=== PATIENT | male | born 1980 | race Caucasian/White ===

== ENCOUNTER 2019-09-30 00:37 | Outpatient (CLI) | payer OTHER, SELFPAY ==
[2019-09-30 17:56] LABS: SARS-CoV-2 RNA PCR Negative
== END 2019-09-30 00:38 | disposition home or self-care (01) ==
LOC: ANHCOVIDDT 00:37
PROVIDERS: PCP Internal Medicine; Visit Provider Internal Medicine Gastroenterology
DX: Z01.812 Encounter for preprocedural laboratory examination (principal); Z11.59 Encounter for screening for other viral diseases
CPT/HCPCS: 87635; C9803; U0003

== ENCOUNTER 2019-10-02 02:06 | Day surgery (SDC) | payer OTHER, SELFPAY ==
[2019-09-22 14:56] VITALS: BMI 26.6
[2019-10-02 07:32] VITALS: BP 120/75; PULSE 90; RESP 18; TEMP 36.8; O2SAT 99; BMI 25.4
[2019-10-02] MEDS: LACTATED RINGERS 1,000 ML 150 ML IV CONT (07:42)
--- NOTE | 2019-10-02 08:05 | P.PNAN_ITS ---
Anes - Initial Pre Proc Eval Procedure: Operation Date: 10/02/19 08:30 Proposed Procedures p Esophagogastroduodenoscopy - Enmanuel Young MD Date/Time: 10/02/19 08:05 Surgeon: Enmanuel Young MD Pre Op Diagnosis: Dysphagia Patient Data Age: 38 Gender: M Height: 5 ft 11 in Weight: 82.9 kg Last Vital Signs Temp 98.2 F 10/02/19 07:32 Pulse 90 10/02/19 07:32 Resp 18 10/02/19 07:32 BP 120/75 10/02/19 07:32 Pulse Ox 99 10/02/19 07:32 Allergies Allergy/AdvReac Type Severity Reaction Status Date / Time No Known Allergies Allergy Verified 10/02/19 07:30 Home Medications Medication Instructions Recorded Confirmed Type escitalopram oxalate 20 mg PO DAILY 09/22/19 10/02/19 History Patient hx anesthesia problems: none Family hx anesthesia problems: none [facility] Past Medical History Medical History (Updated 10/02/19 @ 07:58 by Marquise Jackman MD) Anxiety Social History Social History (Updated 10/02/19 @ 08:04 by Marquise Jackman MD) Smoking packs per day: 1 Smoking cigarettes per day: 20.0 Years smoked: 15 Smoking pack-years: 15.00 Smoking status: Current every day smoker Anes - Eval Final PreProcedure Day of Procedure 10/02/19 08:05 Patient weight: normal Heart: regular rate and rhythm Lungs: clear to auscultation Airway: Mallampati scale class II Neurological: alert and oriented Last oral intake: >/= 8 hours ASA classification: II Emergent: no Anesthetic plan: proceed Anesthesia type and monitoring: general GIVS and standard monitoring Informed Consent: The patient's anesthetic plan and its attendant risks and benefits were discussed with the patient/family/POA. Questions were solicited and answers provided to the satisfaction of the patient/family/POA.
--- NOTE | 2019-10-02 08:12 | PM.HPGS ---
History of Present Illness History of Present Illness Consent: Risks, benefits, and alternatives have been discussed and questions answered. Patient agrees to proceed with procedure. Chief complaint: Dysphagia Narrative: Noah Donaldson is a 38 year old W male with a history of dysphagia I saw this patient 2016. He was found to have gastroesophageal reflux disease with Schatzki's ring. This was dilated he was placed on Prilosec. Patient's symptoms improved. However he started having some GI I difficulty felt was related to the Prilosec this was stopped most symptoms improved but he was never placed on the another medication for his acid reflux. He has had increasing difficulty again with dysphagia particularly for solid foods. [facility] Past Medical History Medical History (Updated 10/02/19 @ 08:13 by Enmanuel Young MD) Anxiety GERD (gastroesophageal reflux disease) Surgical History Surgical History (Updated 10/02/19 @ 08:14 by Enmanuel Young MD) H/O sinus surgery H/O vasectomy H/O wisdom tooth extraction Social History Social History (Updated 10/02/19 @ 08:04 by Marquise Jackman MD) Smoking packs per day: 1 Smoking cigarettes per day: 20.0 Years smoked: 15 Smoking pack-years: 15.00 Smoking status: Current every day smoker Meds Home Medications and Allergies Home Medications Medication Instructions Recorded Confirmed Type escitalopram oxalate 20 mg PO DAILY 09/22/19 10/02/19 History Allergies Allergy/AdvReac Type Severity Reaction Status Date / Time No Known Allergies Allergy Verified 10/02/19 07:30 Vital Signs Vital Signs - 24 hr 10/02/19 07:32 Temperature 36.8 C Pulse Rate 90 Respiratory Rate 18 Blood Pressure 120/75 Pulse Oximetry 99 Exam Const: Orientation/consciousness: patient oriented x3 Resp: Auscultation: clear to auscultation bilaterally Cardio: Rate: regular rate Rhythm: regular rhythm Heart sounds: no murmurs GI: GI Palp: Yes Soft to palpation, No Tenderness to palpation present (GI), Yes No hepatosplenomegaly present and No Palpable mass present Auscultation: normal bowel sounds Neuro: General: patient oriented x3 and no focal motor deficits Extrem: General: no pedal edema Assessment and Plan Additional Plan EGD with possible esophageal dilatation for evaluation of dysphagia
[2019-10-02 09:00] VITALS: BP 100/64; PULSE 72; RESP 21; O2SAT 93
[2019-10-02 09:10] VITALS: BP 99/68; PULSE 73; RESP 16; O2SAT 98
[2019-10-02 09:20] VITALS: BP 105/71; PULSE 71; RESP 19; O2SAT 100
[2019-10-02 09:30] VITALS: BP 109/84; PULSE 78; RESP 21; O2SAT 100
== END 2019-10-02 09:37 | disposition home or self-care (01) ==
PROVIDERS: PCP Internal Medicine; Visit Provider Internal Medicine Gastroenterology
PROC: 0DJ08ZZ Inspection of Upper Intestinal Tract, Via Natural or Artificial Opening Endoscopic (ICD-10-PCS; CPT 43235; principal; 2019-10-02 08:30)
DX: K22.2 Esophageal obstruction (principal); K21.0 Gastro-esophageal reflux disease with esophagitis; K29.50 Unspecified chronic gastritis without bleeding; F41.9 Anxiety disorder, unspecified; F17.210 Nicotine dependence, cigarettes, uncomplicated
CPT/HCPCS: 43239; 43249; 87081; 87635; 88305; C1726; J2704; J7120; U0003

== ENCOUNTER 2019-10-24 14:33 | Outpatient (CLI) | payer OTHER, SELFPAY ==
--- NOTE | ~2019-10-24 | XR_ITS ---
EXAMINATION: XR barium swallow DATE: 10/24/2019 15:15 INDICATION: Dysphagia TECHNIQUE: The patient drank thick barium, gas-producing crystals, and thin barium. The patient also ingested a barium pill Fluoroscopy of the hypopharynx and esophagus was performed. Fluoroscopy exposu re time was 2.0 minutes. The DAP for this procedure was 13.45 Gycm2. COMPARISON: None. FINDINGS: Esophageal motility is normal. There is no hiatal hernia. There was no gastroesophageal ref lux with provocative maneuvers. There appears to be mild stricturing of the esophagus at the gastroes ophageal junction. The ingested barium pill impacted at the distal esophagus at the gastroesophageal junction. The pill eventually passed after several sips of water and finally after a moderate-sized b olus of thin barium. IMPRESSION: 1. Mild stricturing of the distal esophagus at the gastroesophageal junction. No mass identified. Reviewed, dictated and finalized at location A. IMPRESSION: 1. Mild stricturing of the distal esophagus at the gastroesophageal junction. N o mass identified.
== END 2019-10-24 14:34 | disposition home or self-care (01) ==
PROVIDERS: PCP Internal Medicine; Visit Provider Internal Medicine Gastroenterology
DX: R13.10 Dysphagia, unspecified (principal)
CPT/HCPCS: 74220

== ENCOUNTER 2022-03-14 09:01 | Outpatient (CLI) | payer OTHER, SELFPAY ==
--- NOTE | 2022-03-20 18:45 | WPDHOMESLEEP ---
Sleep Study - Home Unattended Date of Study: 03/14/22 Ordering Provider: Bryn Vargas, Interpreting Provider: Malka Darling, DO Home Sleep Study Type: Watch PAT Height: 1.8 m Weight: 92.079 kg Body Mass Index: 28.3 Neck Circumference (inches): 16.25 [place]: 13 Reason for Sleep Study Snoring, daytime hypersomnia Sleep History The patient is a 41-year-old male with anxiety, depression, hyperlipidemia and GERD that had a sleep study ordered by his psychiatrist for evaluation of sleep apnea. He frequently awakens from sleep short of breath. He occasionally awakens at night with heartburn, belching or cough. He frequently snores and is constantly loud enough that others complain. He frequently has trouble sleeping when he has a cold. He occasionally wakes up gasping for air throughout the night. He frequently has breathing problems at night observed by himself or others. He frequently sweats excessively at night. He frequently has heart palpitations or irregular heartbeats during the night. He frequently falls asleep during the day and frequently falls asleep while driving. He denies sleep paralysis, cataplexy and hypnagogic / hypnopompic hallucinations. He rarely has trouble at school or work due to sleepiness. He denies having nightmares. He denies feeling afraid of going to sleep. He occasionally remembers his dreams. He occasionally has thoughts racing through his mind. He occasionally feels sad, depressed or anxious. He rarely has muscular tension. He constantly notices parts of his body jerk. He constantly kicks during the night. He occasionally has crawling and aching feelings in his legs and occasionally has leg pain during the night. He constantly grinds his teeth during sleep and frequently awakens with morning jaw pain. He is occasionally bothered by pain during the day and occasionally awakened by pain during the night. He frequently wakes up feeling stiff in the morning. He occasionally wakes up with sore or achy muscles. He occasionally wakes up with pain in the neck, spine and other joints. He goes to bed between 9-10 p.m. on both weekdays and weekends. It takes him 5-10 minutes to fall asleep. He wakes up twice throughout the night to urinate. He is able to fall back asleep within 10 minutes. He wakes up between 5-6 a.m. on weekdays and between 8-9 a.m. on the weekends. He typically gets 6-8 hours of sleep per night. He will stay in bed for 5-10 minutes after waking up in the morning. He currently lives with his girlfriend and 3 children. He does not consume any caffeinated beverages within 2 hours of bedtime. He does not engage in physical exercise before bedtime. He will watch television before falling asleep. He will take naps in the afternoon or the evening and they are refreshing. He drinks 80 oz of caffeinated beverage per day. He smokes 1 pack of cigarettes per day. He denies alcohol and recreational drug use. [facility] Past Medical History Medical History Anxiety GERD (gastroesophageal reflux disease) Surgical History Surgical History H/O sinus surgery H/O vasectomy H/O wisdom tooth extraction Social History Social History Smoking packs per day: 1 Smoking cigarettes per day: 20.0 Years smoked: 15 Smoking pack-years: 15.00 Smoking status: Current every day smoker Medications Home Medications Medication Instructions Recorded Confirmed Type escitalopram oxalate 20 mg tablet 20 mg PO DAILY 09/22/19 10/02/19 History Sleep Procedure The sleep study was completed using [employer] a technically adequate device with seven channels: peripheral arterial tone, actigraphy, body position, snore, respiratory movement, pulse oximetry, sleep staging, and heart rate. Prior to using the device, the
[2022-03-20 18:56] VITALS: BMI 28.3
--- NOTE | 2023-03-08 11:11 | SLEEP ---
pt missed appt with sleep med
== END 2022-03-15 14:55 | disposition home or self-care (01) ==
LOC: ANHCSM 09:02
PROVIDERS: PCP Internal Medicine; Visit Provider Internal Medicine
DX: G47.33 Obstructive sleep apnea (adult) (pediatric) (principal)
CPT/HCPCS: 95800

== ENCOUNTER 2022-12-24 12:32 | Emergency (ER) | payer OTHER, SELFPAY ==
[2022-12-24] VITALS (8 sets, daily range): BP systolic 111–138; BP diastolic 66–86; PULSE 70–92; RESP 12–20; TEMP 37.1; O2SAT 97–100
--- NOTE | ~2022-12-24 | CT_ITS ---
EXAMINATION: CTA chest abdomen pelvis DATE: 12/24/2022 14:20 INDICATION: chest pain, SOB, right arm and leg tingling . TECHNIQUE: Computed tomography (CT) of the chest, abdomen, and pelvis was performed with 100 mL Omnip aque-350 intravenous contrast in the arterial phase. Automated exposure control and iterative reconst ruction technique were employed. The dose-length product was 1323.47 mGy-cm. COMPARISON: None FINDINGS: CHEST: Thoracic aorta: No significant dilation or calcification. Lung parenchyma and airways: Lungs and airways are clear. Thoracic inlet, axillae and chest wall: No thyroid or soft tissue mass. No axillary lymphadenopathy. Mediastinum: No mass or lymphadenopathy. Heart and pericardium: Normal heart size. No pericardial effusion. Coronary artery calcifications: Absent. Pleura: No effusion or mass. Thoracic bones: No acute osseous finding in the chest. ABDOMEN/PELVIS: Liver: Multiple simple cysts Biliary/Gallbladder: Gallbladder is normal. No bile duct dilation. Pancreas: No mass or duct dilation. Spleen: Normal. Adrenals:No mass. Kidneys: No suspicious mass, obstructing stone, or hydronephrosis. Simple 4.6 cm right midpole cyst. GI tract: No small or large bowel dilation. Normal appendix. Mesentery/Peritoneum: No ascites, mass, or free air. Retroperitoneum: No mass Pelvis: Enlarged prostate. Mild wall thickening in a partially distended urinary bladder. Soft Tissues: Soft tissues and body wall unremarkable. Abdominopelvic bones: No acute osseous finding in the abdomen/pelvis. IMPRESSION: Mild wall thickening in a partially distended urinary bladder, may reflect incomplete distention, out let obstruction from prostatomegaly, or cystitis. Otherwise, no acute process detected in the chest, abdomen, or pelvis. Reviewed, dictated and finalized at location K. IMPRESSION: Mild wall thickening in a partially distended urinary bladder, may reflect inco mplete distention, outlet obstruction from prostatomegaly, or cystitis. Otherwise, no acute process detected in the chest, abdomen, or pelvis.
--- NOTE | ~2022-12-24 | XR_ITS ---
XR chest 2V 12/24/2022 12:51 Indication: Chest pain Procedure: 2 view chest Comparison: No prior studies for comparison. Findings: Left lower lobe airspace disease. Heart size normal. No pleural effusion, edema or pneumoth orax. No acute osseous abnormality. Impression: 1: Left lower lobe airspace disease which may represent pneumonia and/or atelectasis. Reviewed, dictated and finalized at location A. Impression: 1: Left lower lobe airspace disease which may represent pneumonia and/or atelec tasis.
--- NOTE | ~2022-12-24 | CT_ITS ---
EXAMINATION: CT brain wo con DATE: 12/24/2022 14:21 INDICATION: arm and leg tingling . TECHNIQUE: Computed tomography (CT) of the head was performed without intravenous contrast. The mA wa s adjusted according to patient size. Iterative reconstruction technique was employed. The dose-lengt h product was 605.33 mGy-cm. COMPARISON: None. FINDINGS: No acute intracranial hemorrhage or extra-axial fluid collection. No hydrocephalus, mass, or herniation. No acute ischemic infarct. Unremarkable dural venous sinus attenuation. No acute osseous abnormality. Frontal and ethmoid mucosal thickening, trace left mastoid fluid, the remaining] aerated spaces are c lear. IMPRESSION: No acute intracranial process. Reviewed, dictated and finalized at location K.
--- NOTE | 2022-12-24 12:36 | ECG_ITS ---
Measurements Intervals [place] Rate: 92 P: 66 TX: 174 QRS: 50 QRSD: 86 T: 63 QT: 344 QTc: 427 Interpretive Statements SINUS RHYTHM NORMAL ELECTROCARDIOGRAM NO PREVIOUS ECG AVAILABLE FOR COMPARISON Electronically Signed On 12-25-2022 7:01:29 CDT by Maynor Chan M.D.
--- NOTE | 2022-12-24 12:53 | ED.CHESTPAIN ---
HPI - Chest Pain General Chief Complaint: Chest Pain Stated Complaint: chest pain Time Seen by Provider: 12/24/22 12:51 History of Present Illness HPI narrative: Patient is a 42-year-old male with history of anxiety, GERD, obstructive sleep apnea, active cigarette smoker here with chest pain. Patient states that over the last 1 week he has been having episodic chest pain. He states feels like a pressure sensation in the center of his chest and usually comes for a few minutes and then resolved. He denies any radiation of the pain wash in full. He does note that he has had some associated right arm and leg tingling, pins and needle sensation, no sensory or motor deficit. he additionally describes 2 episodes of his vision going black while he was driving which occurred 1 week ago and yesterday. He states that his vision rapidly returned and he had no other symptoms like body shaking or urinary incontinence. No prior history of PE or DVT. No prior history of stroke. No personal cardiac history, has never had a cardiac workup. Of note he has not been using a CPAP at night because he was never provided with it. Shortly after his sleep study at the beginning of this year he switched jobs and the health insurance and it seemed to get lost in the mix. No cough, congestion, fever, chills. Related Data Home Medications Medication Instructions Recorded Confirmed escitalopram oxalate 20 mg tablet 20 mg PO DAILY 09/22/19 10/02/19 Allergies Allergy/AdvReac Type Severity Reaction Status Date / Time No Known Allergies Allergy Verified 10/02/19 07:30 Review of Systems Review of Systems: All systems reviewed & are unremarkable except as noted in HPI and below PMFSH Past Medical History Medical History Anxiety GERD (gastroesophageal reflux disease) Surgical History Surgical History H/O sinus surgery H/O vasectomy H/O wisdom tooth extraction Social History Social History Smoking packs per day: 1 Smoking cigarettes per day: 20.0 Years smoked: 15 Smoking pack-years: 15.00 Smoking status: Current every day smoker Exam Narrative: GENERAL: Well-appearing, well-nourished, and in no acute distress. HEAD: Normocephalic, atraumatic. EYES: PERRLA and EOMI. ENT: Nares clear. Mucous membranes moist. NECK: Supple. CHEST: Clear to auscultation. No respiratory distress. HEART: Regular rate and rhythm. Normal, equal radial and posterior tibial pulses. ABDOMEN: Soft, nontender, nondistended. EXTREMITIES: Normal range of motion. No edema. SKIN: Warm, dry, no rash. NEURO: No focal deficits. Alert and oriented x3. No sensory or motor deficits over the arms or legs, no facial droop. PSYCH: Normal mood and affect. Course Course Emergency Course: Chart review performed. Patient here for chest pain and an episode of vision changes. Triage vitals normal. He appears to have had a sleep study performed in March of 2022, suggested by his psychiatrist. He was found to have mild sleep apnea and suggested to have PAP therapy, they also had strong suspicion for restless leg syndrome. He also had an endoscopy in 2019 and found to have grade B reflux esophagitis. Patient seen evaluated, no acute distress, nontoxic appearing. Will do cardiac workup. NIH of 0, no sensory deficits. Given neuro symptoms along with chest pain will do CTA dissection study along with the cardiac labs. Lab work and imaging reviewed. CBC grossly normal. CMP normal, initial troponin <0.012. COVID/influenza/RSV. CTA negative. HEART score of 1. Will do repeat troponin. Repeat troponin negative. Patient is advised to not drive until he follows up his primary care doctor. Given his low heart score I do feel that he is okay for outpatient follow-up with his primary doctor to coordinate f
[2022-12-24 13:37] LABS: Basophils Absolute Auto 0.1 K/mm3 (0.0-0.1); Basophils Percent Auto 0.7 % (0.2-1.2); Eosinophils Absolute Auto 0.3 K/mm3 (0-0.3); Hematocrit 41.6 % (42.0-52.0); Hemoglobin 13.8 g/dL (14.0-18.0); Immature Granulocyte Absolute 0.02 K/mm3 (0.00-0.031); Immature Granulocyte Percent A 0.2 % (0-0.5); Lymphocytes Absolute Auto 1.93 K/mm3 (0.9-3.2); Lymphocytes Percent Auto 23.9 % (18.3-44.2); Mean Corpuscular HGB Conc 33.2 g/dl (32-36); Mean Corpuscular Hemoglobin 31.7 pg (26-34); Mean Corpuscular Volume 95.6 fl (80-100); Mean Platelet Volume 9.5 fl (7.4-10.4); Monocytes Absolute Auto 0.5 K/mm3 (0.1-0.6); Monocytes Percent Auto 5.9 % (2.6-8.5); Neutrophils Absolute Auto 5.3 K/mm3 (1.3-6.7); Neutrophils Percent Auto 65.3 % (45.5-73.1); Platelet Count Result 289 k/mm3 (150-375); Red Blood Count 4.35 M/mm3 (4.6-6.20); Red Cell Distribution Width 13.3 % (11.5-14.5); White Blood Count 8.1 K/mm3 (4.5-10.0)
[2022-12-24 13:46] LABS: INR 1.1; Prothrombin Time 14.4 Seconds (11.1-14.7)
[2022-12-24 13:47] LABS: Partial Thromboplastin Time 28.3 SECONDS (22.3-36.8)
[2022-12-24 13:48] LABS: Alanine Aminotransferase 29 U/L (6-50); Albumin Level 4.3 g/dL (3.5-5.1); Alkaline Phosphatase 71 U/L (38-126); Anion Gap 6 mmol/L (8-16); Aspartate Amino Transferase 26 U/L (17-59); Bilirubin,Total 0.4 mg/dL (0.2-1.3); Blood Urea Nitrogen 9 mg/dL (9-20); Carbon Dioxide 26 mmol/L (22-30); Chloride 107 mmol/L (98-107); Estimated CRCL calculation 84 ml/min; Estimated Glomerular Filt Rate > 60; Glucose 96 mg/dL (65-110); Lipase 78 U/L (23-300); Potassium 3.9 mmol/L (3.4-5.0); Sodium 139 mmol/L (137-145)
[2022-12-24 14:00] LABS: Troponin I < 0.012 ng/mL (0.000-0.034)
[2022-12-24 14:15] LABS: Influenza A QL RT-PCR Negative (Negative); Influenza B QL RT-PCR Negative (Negative); RSV RNA, RT-PCR Negative (Negative); SARS-CoV-2 RNA PCR Negative (Negative)
[2022-12-24] MEDS: ACETAMINOPHEN 500 MG TABLET 1000 MG PO (15:37)
[2022-12-24 17:02] LABS: Troponin I < 0.012 ng/mL (0.000-0.034)
== END 2022-12-24 17:27 | disposition home or self-care (01) ==
PROVIDERS: Emergency Medicine; Emergency Provider Student in an Organized Health Care Education/Training Program; PCP Internal Medicine
DX: R07.89 Other chest pain (principal); R55 Syncope and collapse; Z11.52 Encounter for screening for COVID-19; K21.00 Gastro-esophageal reflux disease with esophagitis, without bleeding; G47.33 Obstructive sleep apnea (adult) (pediatric); F41.9 Anxiety disorder, unspecified; F17.210 Nicotine dependence, cigarettes, uncomplicated; R93.41 Abnormal radiologic findings on diagnostic imaging of renal pelvis, ureter, or bladder; R91.8 Other nonspecific abnormal finding of lung field
CPT/HCPCS: 36415; 70450; 71046; 71275; 74174; 80053; 83690; 84484; 85025; 85610; 85730; 87637; 93005; 99284; A9270; Q9967